=== PATIENT | female | born 1950 | race Caucasian/White ===

== ENCOUNTER 2018-11-30 13:35 | Inpatient (IN) | payer OTHER ==
[~2018-11-30] VITALS: Ht 160 cm; Wt 103.3 kg
[2018-11-30 13:41] VITALS: BP 166/71
[2018-11-30] MEDS ORDERED: TYLENOL325 MG PO (14:03)
[2018-11-30] MEDS ORDERED: ADVAIR 250-501 EACH INH (14:03)
[2018-11-30] MEDS ORDERED: BENZONATATE200 MG PO (14:04)
[2018-11-30] MEDS ORDERED: BUSPIRONE HCL5 MG PO (14:05)
[2018-11-30] MEDS ORDERED: SINEMET 25-1001 EAC1 PO (14:06)
[2018-11-30] MEDS ORDERED: COREG6.25 MG PO (14:07)
[2018-11-30] MEDS ORDERED: VITAMIN D1000 UNI1 PO (14:07)
[2018-11-30] MEDS ORDERED: EMOLLIENT500 GM TOP (14:08)
[2018-11-30] MEDS ORDERED: FLUOXETINE HCL40 MG PO (14:09)
[2018-11-30] MEDS ORDERED: ADULT WAL-100 MG/5 M PO (14:09)
[2018-11-30] MEDS ORDERED: HUMALOG100 UNIT/1 SUBQ (14:10)
[2018-11-30] MEDS ORDERED: HYDROCODONE-AP1 EAC6 PO (14:11)
[2018-11-30] MEDS ORDERED: LANTUS100 UNIT/M SUBQ (14:13)
[2018-11-30 14:14] LABS: URINE BILIRUBIN NEGATIVE (Negative); URINE BLOOD 2+ (Negative); URINE CLARITY CLOUDY; URINE COLOR YELLOW; URINE GLUCOSE-RANDOM* NEGATIVE (Negative); URINE KETONES NEGATIVE (Negative); URINE NITRITE-REFLEX NEGATIVE (Negative); URINE PROTEIN (DIPSTICK) 2+ (Negative); URINE SPECIFIC GRAVITY 1.025 (1.005-1.035); URINE UROBILINOGEN 0.2 E.U./dl (0.2-1.0)
[2018-11-30] MEDS ORDERED: SYNTHROID75 MCG PO (14:14)
[2018-11-30] MEDS ORDERED: IPRAT-ALBUT 0.5-3 ML INH (14:14)
[2018-11-30] MEDS ORDERED: LIDODERM1 EACH TOP (14:15)
[2018-11-30] MEDS ORDERED: LIPITOR10 MG PO (14:17)
[2018-11-30] MEDS ORDERED: LISINOPRIL20 MG PO (14:17)
[2018-11-30] MEDS ORDERED: CLARITIN10 MG PO (14:17)
[2018-11-30 14:18] LABS: URINE LEUKOCYTES-REFLEX 3+ (Negative)
[2018-11-30] MEDS ORDERED: MELATONIN3 MG PO (14:18)
[2018-11-30] MEDS ORDERED: MAGOX 400400 MG PO (14:18)
[2018-11-30] MEDS ORDERED: RANITIDINE HCL75 MG PO (14:20)
[2018-11-30] MEDS ORDERED: NYAMYC15 GM TOP (14:20)
[2018-11-30] MEDS ORDERED: TRAZODONE HCL50 MG PO (14:21)
[2018-11-30] MEDS ORDERED: SENNA8.6 MG PO (14:21)
[2018-11-30] MEDS ORDERED: VOLTAREN GEL 1100 G2 TOP (14:22)
[2018-11-30] MEDS ORDERED: XANAX 0.5 MG0.5 MG PO (14:22)
[2018-11-30] MEDS ORDERED: XARELTO15 MG PO (14:23)
[2018-11-30 14:33] LABS: CASTS None Seen /LPF (None Seen); CRYSTALS None Seen /LPF (None Seen); SQUAMOUS 0-3 Few /LPF (0-3)
[2018-11-30 14:34] LABS: BACTERIA-REFLEX >30 Many /HPF (None Seen); URINE RBC 0-2 Rare /HPF (0-2); URINE WBC-REFLEX >25 Many /HPF (0-5)
[2018-11-30 14:46] LABS: HEMATOCRIT 37.7 % (37.0-47.0); HEMOGLOBIN 12.9 gm/dL (12.0-15.0); MCH 30.3 pg (26.0-34.0); MCHC 34.2 g/dL (28.0-37.0); MCV 88.6 fL (80.0-100.0); RBC 4.25 mil/uL (4.20-5.00); RDW 15.4 % (10.5-14.5); WBC 9.7 thou/uL (4.0-11.0)
[2018-11-30 14:51] LABS: CALCIUM 10.6 mg/dL (8.5-10.1); CREATININE 1.3 mg/dL (0.6-1.0); POTASSIUM 4.2 mmol/L (3.5-5.1)
--- NOTE | 2018-11-30 15:27 | NUR ---
KAREN AGUILERA (DAUGHTER) [phone]
[2018-11-30 16:27] VITALS: BP 147/76
--- NOTE | 2018-11-30 18:43 | NUR ---
PATIENT ARRIVED ON UNIT AT 1645 FROM [facility]. PATIENT ON 96 HOUR HOLD. DAUGHTER KAREN AGUILERA MAKES ALOT OF HER MEDICAL DECISIONS BUT NOT DPOA OR GUARDIAN. [phone]. PATIENT RESIDED AT [facility]. PATIENT HAS NO SHORT TERM MEMORY AND REPEATIOUSLY ASKS SAME QUESTIONS OVER AND OVER. PATIENT DISTRAUGHT AND DOES NOT WANT TO STAY AT FACILITY. PATIENT ATTEMPTED TO STRANGLE HERSELF WITH TELEPHONE CORD AT FACILITY AND HAS HAD SEVERAL SELF HARM ATTEMPTS IN THE PAST WELL. PATIENT STATES SHE DOES THIS TO GAIN ATTENTION SINCE HER DAUGHTER DOES NOT VISIT HER ON REGULAR BASIS OR RESPOND TO HER CONSTANT NEEDS. HAS VERY POOR INSIGHT OR JUDGEMENT AND SLOW TO UNDERSTAND WHAT IS CONVEYED TO HER. ALERT AND ORIENTED X 3 THOUGH. UNDERSTANDS WHY SHE IS HERE PATIENT DOCTOR MOUNIKA ZHONG - DENIED ANY FLU SHOT - STATES AMBULATES WITH WALKER AT FACILITY. PATIENT HAD FALL - NOV 26 AT FACILITY. NODULE AND BRUISING BELOW KNEE ON RIGHT TIBIA - CLAIMS VERY PAINFUL. ALSO CELLULITIS NOTED BILATERALLY IN BOTH LOWER EXTREMITIES. DIAGNOSED UTI AND STARTED ON ANTIBIOTIC. CONTINENT AND MAKES TOLLETING NEEDS KNOWN. NEEDS STAND BY ASSIST WITH AMBULATING. PATIENT DIABETIC - INSULIN DEPENDENT. PATIENT ALLERGIC TO COMPAZINE, KEFLEX, CEPHALOSPORINS AND PENICILLINS. MULTIPLE MEDICAL DIAGNOSES LISTED IN CHART - DOCUMENTATION. DR. HARVEY IS HER MEDICAL DOCTOR. PICTURES TAKEN OF LOWER EXTREMITIE AND BRUISE TO RIGHT TIBIA. ALSO HAS MIDDLE TOE AMBUTATED ON LEFT FOOT.
[2018-11-30 19:00] VITALS: BP 152/69
[2018-11-30 19:53] LABS: ALBUMIN 3.6 g/dL (3.4-5.0); DIRECT BILIRUBIN 0.1 mg/dL (<0.1-0.3); TOTAL BILIRUBIN 0.5 mg/dL (<0.1-1.0); TOTAL PROTEIN 7.1 g/dL (6.4-8.2)
--- NOTE | 2018-12-01 01:10 | NUR ---
THE PATIENT IS VERY ANXIOUS THIS PM. ALERT ET ORIENTED X 2, NAME AND PLACE. WALKS WITH A WALKER AND SOMETIMES USEDS A WHEELCHAIR. MAKES NEEDS KNOWN. WANTED SOMETHING TO HELP HER SLEEP EARLIER IN THE EVENING, MEDICATED PER PT'S REQUEST.
--- NOTE | 2018-12-01 05:42 | NUR ---
THE PATIENT WOKE UP C/O ABOUT HER BACK HURTING, GAVE THE PATIENT TWO PLAIN TYLENOL ORDERED. CALLED THE N.P. WHO WAS DATA TECHNICIAN AND SHE ORDERED FOR HER TO GET A LIDOCAINE PATCH FOR HER BACK. WHILE TELLING THE PATIENT REGARDING HER PAIN MEDICATION, SHE WAS CRYING AND YELLING, "NURSE, NURSE."
[2018-12-01 07:15] VITALS: BP 149/71
--- NOTE | 2018-12-01 08:20 | NUR ---
CLIENT UP SET THIS AM AND WANTING TO GO HOME, HER SON BIRTHDAY TODAY. SHE STATED THAT SHE WANTS TO SAY HAPPY BIRTHDAY TO HIM. CLIENT STATED SHE WASN'T HUNGRAY. CLIENT HAS LARGE BRUISE TO RT LOWER LEG ABOVE KNEE FROM FALL. UP WITH WALKER, HAS BRIEFS ON THAT IS SATURATED WITH URINE.
--- NOTE | 2018-12-01 10:49 | NUR ---
PT YELLING INCESSANTLY; STATES SHE WANTS TO GO HOME, MISSES HER DAUGHTER, USED TO HAVE A DOG, STATES SON IS HAVING A BDAY TODAY, CRYING. DR AND RN WORKING ON HER MEDICATIONS, WILL CALM DOWN LONG ENOUGH TO ANSWER QUESTIONS THEN IMMEDIATELY START CRYING SAYING SHE WANTS TO GO HOME. DECLINES GOING OUT TO DAY ROOM, GAVE HER SILVA TO HER FOR CALLING OUT.
--- NOTE | 2018-12-01 12:32 | NUR ---
ADM ZYPREXA 2.5MG PO FOR ANXIETY AND CRYING WANTING TO GO HOME AND TALK TO HER DAUGHTER. SHE IS UPSET.
--- NOTE | 2018-12-01 13:03 | H ---
[facility] [place] [address] HISTORY AND PHYSICAL Name: SAMUEL STEVEN Room #: 518A-A ADM IN M.R.#: [id number] Admission: 11/30/18 ������������������ Attend Phys: Anthony Abbasi DO Discharge: ������������������ Date of : 50 Report #: [id number] THIS REPORT FOR: //name// CC: Anthony Chiu DATE OF SERVICE: 11/30/2018 INPATIENT PSYCHIATRIC EVALUATION SOURCE OF INFORMATION: Interview with the patient in the Emergency Room and also briefly on the [facility] telephone call with her daughter, Donna; chart review from the Emergency Room; limited notes from the [facility], where the patient resides. PRIMARY CARE PHYSICIAN: Unknown. PSYCHIATRIST: Her psychiatrist at the nursing facility is Dr. Nicole Pascal. HISTORY OF PRESENT ILLNESS: A 68-year-old obese female brought to the Emergency Room from the [facility]. She has been a resident there for about 2 years. She was sent after staff noticed her expressing suicidal thoughts, this was x 2; restricted affect, fatigue and decreased appetite. Apparently, in addition to her threats today, she was found with the telephone cord wrapped around her neck. She reports family strain and does not feel as though her family members, specifically her daughter, is attending to her needs. Collaterals later gotten from her daughter, Donna, which is much more believable, the patient is calling a large number of times a day and not remembering her previous phone calls and making some unreasonable demands of the daughter's time. This has been going on in its current intensity for several weeks. The patient later reported that she did this to get her daughter to visit and pay attention to her. REVIEW OF SYSTEMS: From the ER: CONSTITUTIONAL: Denies fever or chills. EYES: Denies eye pain, visual change or discharge. HEENT: Denies hearing changes, ear drainage, ear infections, ear pain, neck pain or stiffness. RESPIRATORY: Denies cough, shortness of breath, hemoptysis or respiratory distress. CARDIOVASCULAR: Denies chest pain, chest pain with exertion or edema. GASTROINTESTINAL: Denies abdominal pain, nausea, vomiting or diarrhea. GENITOURINARY: Denies burning, frequency or dysuria. MUSCULOSKELETAL: Denies back pain, joint pain, muscle weakness or myalgias. SKIN: Denies rash. [facility] [address] [place] [address] HISTORY AND PHYSICAL Name: SAMUEL STEVEN Room #: 518A-A ADM IN ..#: [id number] Admission: 11/30/18 ������������������ Attend Phys: Anthony Abbasi DO Discharge: ������������������ Date of : 50 Report #: [id number] NEUROLOGIC: Denies weakness, headache or loss of consciousness. PSYCHIATRIC: SI with suicidal gesture. Denies HI or hallucinations. Otherwise, negative on 10-point review of systems. ALLERGIES: CEPHALEXIN, SEVERE; COMPAZINE, WHICH IS PROCHLORPERAZINE, INTERMEDIATE CONFUSION; CEPHALOSPORINS, SWELLING; PENICILLINS, NO REACTION GIVEN. MEDICATIONS: Her reported medications from the prison are as follows: Tylenol 650 mg every 4 hours p.r.n. for pain on the floor, Advair Diskus 250/50 one puff inhaled b.i.d., benzonatate 200 mg p.o. 3 times a day as needed for cough, buspirone 5 mg oral twice a day for anxiety, carbidopa/levodopa 25/100 mg one-half tab p.o. twice per day, Coreg 6.25 mg oral twice a day, cholecalciferol 1000 international units oral daily, Moisturizing cream applied topically twice a day to the legs, fluoxetine 40 mg oral daily, guaifenesin 200 mg oral every 4 hours p.r.n. for cough, insulin lispro 7 units subq before meals, hydrocodone/acetaminophen 5/325 one tab oral every 4 hours p.r.n. for pain 5-10, Lantus 25 units subq at bedtime, ipratropium bromide with albuterol 3 mL inhaled q.4h. p.r.n. for severe wheezing, levothyroxine 75 mcg oral daily for hypothyroidism, atorvastatin 10 mg oral daily for hyperlipidemia, lisinopril 10 mg p.o. daily for hypertension, loratadine 10 mg p.o. daily p.r.n. for allergies, melatonin 3 mg oral at bedtime for sleep, nystatin powder apply topically daily medication specified, ranitidine 75 mg oral daily for GERD, senna 7.2 mg oral as needed p.r.n. constipation, trazodone 50 mg oral at bedtime for insomnia, Diclofenac gel twice a day. SOCIAL HISTORY: Denied tobacco use, denied alcohol use, denied any recreational drug use. Born and raised in [place], [place]; originally high school education. She actually went to college when her kids did not get a social work degree. 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. The patient retired from work about 15 years ago. Regarding the last several years, 3 years ago, she was found down several times with TIA. She spent one week in a coma and 3 months in rehabilitation, returned to live with daughter for 8 months. Daughter had an issue of finding her down inexplicitly multiple times. At that point, she was moved to the long-term care facility. Daughter describes her as having high anxiety, relying on Xanax, needing and wanting to be weaned; recently started on BuSpar. She states her brother, the son of the patient, came last weekend to assist. She has been calling her 8-15 times a day over the last 2 weeks. The daughter also endorses recent admission at [facility] for several weeks around [place] time; it is unclear if it is psych or medical. Additional episode of psychiatric history, diagnosis of vascular dementia made one month ago. Unclear if she has had any neuropsych testing. Her primary care physician is Dr. Lauren Chiu. [facility] [address] [place] [address] HISTORY AND PHYSICAL Name: SAMUEL STEVEN Room #: 518A-A ADM IN [facility].#: [id number] Admission: 11/30/18 ������������������ Attend Phys: Anthony Abbasi DO Discharge: ������������������ Date of : 50 Report #: [id number] LABORATORY DATA: Laboratories in the Emergency Room, white count 9.7, H and H 8.9 and 37.7 and platelet count 253,000. BUN 26, creatinine 1.3, glucose 140 and calcium 10.6, which is slightly high. AST is low at 13, ALT low at 21 and alkaline phosphatase 136. Vitamin B12 level is 772. Albumin is 3.6. Urinalysis had 2+ protein, 2+ blood, 3+ leukocyte esterase, greater than 25 wbc's and greater than 30 bacteria per high-power field. MICROBIOLOGY: The patient has urine and 2 blood cultures pending. VITAL SIGNS: On admission, BP 147/76, heart rate 69, respirations 16 and O2 sat 97%. I do not see a temperature taken, but I believe her to be afebrile. IMAGING: No imaging was done today. No brain scans available. The patient is mostly still ambulatory, but weak. She does have bruising on the right knee and bilateral ankle erythema, most likely stasis in nature; however, cellulitis cannot be excluded. CURRENT MEDICATIONS IN THE HOSPITAL: Include Xarelto, MiraLax, vitamin D, atorvastatin, Coreg, Protonix 20 mg daily, levothyroxine and insulin 7 units with meals. She is on Pulmicort and albuterol inhaler, the Pulmicort is twice a day and albuterol every 6 hours; alprazolam I reduced to 0.25 mg 3 times a day. She is on Bactrim one tab p.o. b.i.d. for another 7 days for UTI and treatment of any cellulitic process, magnesium oxide 400 mg at bedtime and Lantus 25 units. I did increase the dose of her carbidopa/levodopa to one tab p.o. b.i.d. as she had prominent tremulousness of her upper extremities in the 25/100 mg ER, and trazodone 50 mg at bedtime. I have ordered Accu-Cheks a.c. and at bedtime. MENTAL STATUS EXAMINATION: A well-developed, obese, disheveled female appearing her stated age. Attention limited, concentration limited. Speech is on the hyperverbal side, perseverative. No psychomotor agitation. No psychomotor retardation. Denied auditory, visual or tactile hallucinations. Endorsed suicidal intent prior to ER presentation and denying currently. Some helplessness. Denies hopelessness. Denies homicidal intent or plan. Memory not formally tested, though on observation in the ER, I believe her to be grossly impaired. Insight limited. Judgment limited. Fund of knowledge below average. FORMULATION: A 68-year-old obese female brought to the Emergency Room, placed in a 96-hour hold for suicidal statements and suicidal gesture. 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 [facility] [address] HISTORY AND PHYSICAL Name: SAMUEL STEVEN Room #: 518A-A ADM IN M.R.#: [id number] Admission: 11/30/18 ������������������ Attend Phys: Anthony Abbasi DO Discharge: ������������������ Date of : 50 Report #: [id number] PLAN: Evaluate, stabilize and obtain collateral. Medications as already documented. We will attempt to, over the next several days, evalauatethe patient's difficulties and see how we can ameliorate them. I spoke over the phone with her daughter, Donna, as there is likely memory care placement also, given the fact she has no DPOA. We will have to see if that level of care can be provided without proceeding with any appropriate court hearings. ELOS 7-14 days STRENGTH: Relatively young age, supportive family. WEAKNESSES: Chronic course. ��������������������������������������������� <ELECTRONICALLY SIGNED> ���������������������������������������� By: Anthony Abbasi DO ��������������������������������������������� 12/01/18 [id number] Anthony Abbasi DO /nt
--- NOTE | 2018-12-01 15:00 | NUR ---
CLIENT IS RESTING HEAD ON TABLE IN DINNING ROOM. NOT ANXIOUS THIS AM. NOTICE COUGHING AFTER DRINKING LIQUIDS. CLIENT STATED IT IS FROM ALLERGIES. HAD GROUP WITH AUTO WHEEL ALIGNMENT SPECIALIST AND SEEMS CALMER SINCE MEETING.
--- NOTE | 2018-12-01 18:25 | NUR ---
CLIENT CALMER NOW, ABLE TO EAT DINNER. STATED CAN I CALL MY SON TO WISH HIM A HAPPY BDAY. THIS NURSE CALLED DAUGHTER AND GOT NUMBER FOR SON.
[2018-12-01 20:25] VITALS: BP 137/65
--- NOTE | 2018-12-01 23:07 | NUR ---
ASSUMED PT CARE 1899. PT ALERT. REASSESSMENT COMPLETE. PT BED ALARM SET. PT ANXIOUS, SPOKE WITH SON ON PHONE AND CALMED DOWN SOME AFTER. PT IN BED SLEEPING AT THIS TIME. WILL CONTINUE TO MONITOR.
--- NOTE | 2018-12-02 07:30 | NUR ---
CLIENT SLEEPING AND DIDN'T WANT TO EAT BREAKFAST.
[2018-12-02 07:42] VITALS: BP 142/66
[2018-12-02 08:00] VITALS: BP 142/66
--- NOTE | 2018-12-02 10:00 | NUR ---
CLIENT UP AND OUT TO DINNING ROOM VIA WALKER. SHE IS UPSET AND WANTING TO SEE HER DAUGHTER, NOTICED TREMORS TO ARMS. CLIENT HAD YOGART, JUICE AND CRACKERS, ALSO TOOK AM MEDS.
--- NOTE | 2018-12-02 10:46 | NUR ---
CLIENT CRYING AND STATED HER DAUGHTER WAS SUPPOSED TO BE HERE AT 1000. CLIENT WANTING NURSE TO CALL DAUGHTER. REFUSING SHOWER AT THIS TIME DUE TO WANTING PRIVACY.
--- NOTE | 2018-12-02 11:00 | NUR ---
DAUGHTER HERE AND TALKING WITH AND CLIENT.
--- NOTE | 2018-12-02 14:29 | NUR ---
ADM HYDROCODONE 5MG PO FOR PAIN TO BACK OF 10 ON 1-10 SCALE.
--- NOTE | 2018-12-02 16:20 | NUR ---
CLIENT STATED THAT NORCO DIDN'T HELP AT THIS TIME. CLIENT TOOK OFF LIDOCAINE PATCH, CALLING HOSPITALIST FOR INCREASE IN MED.
--- NOTE | 2018-12-02 17:38 | NUR ---
CLIENT ON PHONE WITH DAUGHTER. CLIENT REFUSING TO GET A BATH DUE TO HER WEIGHT, SELF-CONSCIOUS ABOUT HER LOOKS. SHE AGREED TO GETTING A BATH WHEN TALKING TO DAUGHTER.
--- NOTE | 2018-12-02 18:57 | NUR ---
CLIENT HAD TUB SHOWER, TOLERATED WELL. PUT ON CLEAN BRIEF AND CLOTHES. ADM HYDRYCODONE 5MG PO FOR PAIN TO BACK OF 10 ON 1-10 SCALE.
[2018-12-02 20:12] VITALS: BP 106/61
[2018-12-02 22:15] VITALS: BP 106/61
--- NOTE | 2018-12-03 03:02 | NUR ---
PT RELAXING IN BED AT [facility]. TEARFUL AND FRIGHTENED. WANTING TO CALL DAUGHTER. CALL PROVIDED. GOOD CONVERSATION WITH DAUGHTER, WHO REASSURED HER THINGS WERE GOING TO GET BETTER. TOOK MEDS PRESCRIBED. SLEPT WELL THROUGH THE NIGHT. DURING EVENING ASSESSMENT, NOTICED TREMORS. BS 145 GLARGINE 25u SQ TO L TRICEP, PER PT REQUEST.
[2018-12-03 07:47] VITALS: BP 127/62
--- NOTE | 2018-12-03 09:31 | NUR ---
ASSUMED CARE OF PT AT 0700. ADMINISTERED AM MEDS ORDERED. HX HTN, BP MEDS GIVEN ORDERED. ASSESSMENT COMPLETED. DROWSY, PT STATES WANTING TO SLEEP MORE. REFUSED TO GET UP AND EAT BREAKFAST. C/O LOWER BACK PAIN, LIDOCAINE PATCH IN PLACE. PT STATES IT DOES NOT RELIEVE BACK PAIN. CLEAR LUNG SOUNDS, BREATHING TX ORDERED. REGULAR HEART SOUNDS. ACTIVE BOWEL SOUNDS, LBM 2/15. SKIN INTACT, BRUISING AND BILATERALL LOWER EXTREMITY CELLULITIS. PT GETS UP WITH WALKER AND X1 ASSIST. WILL CONTINE TO MONITOR.
--- NOTE | 2018-12-03 09:50 | NUR ---
ASSUMED PATIENT CARE AT 0730 A.M. PATIENT IN ROOM AT THAT TIME, ASSISTED UP TO BEDSIDE COMMODE BY STONEWORK TRACER. NURSE ASSESSED PATIENT AT 0930; AUSSCULTATED IRREGULAR HEART RATE THAT SOUNDED POSSIBLY A-FIB RHYTHM. DR. BERRY ORDERED EKG AT THAT TIME, COMPLETED AT 0945. EKG SHOWS A-FIB; DR. BERRY NOTIFIED, STATED THAT HE WILL TAKE A LOOK AT HER WHEN RESPONDING TO THE UNIT. PATIENT IS LYING IN BED, SUPINE POSITION WITH EYES CLOSED AT THIS TIME. CONTINUE TO MONITOR.
--- NOTE | 2018-12-03 09:56 | NUR ---
ASSUMED PATIENT CARE AT 0730. PATIENT LYING IN BED, LEFT SIDE POSITION. REFUSED TO GET UP FOR BREAKFAST OR TO TAKE HIS 0900 MEDICATIONS. AT 0930, PATIENT WOULD NOT GET UP, CONTINUED TO KEEP HIS EYES CLOSED AND NOT SPEAK TO NURSE. WILL CONTINUE TO MONITORL.
--- NOTE | 2018-12-03 12:41 | NUR ---
DAUGHTER VISITED. PT ATE 100% OF LUNCH. NO INSULIN NEEDED PER SLIDING SCALE. PT IN STABLE CONDITION. END OF SHIFT.
--- NOTE | 2018-12-03 16:34 | NUR ---
NEW ORDER FOR LACTULOSE 30ML FOR CONSTIPATION. ALSO, ORDER FOR KUB. LACTULOSE 30 ML GIVEN. PHARMACY DELIVERED LACTULOSE IMMEDIATELY AFTER ACKNOWLEDGED. NOTE: PATIENT WAS ON THE PORTABLE PHONE, TEARFUL WHILE SPEAKING WITH A FAMILY MEMBER. NURSE ENCOURAGED PATIENT THAT LACTULOSE WILL SOFTEN HER BOWELS IN ORDER TO HAVE A BOWEL MOVEMENT. PATIENT THEN CEASED HER CRYING. CONTINUE TO MONITOR.
--- NOTE | 2018-12-03 18:29 | NUR ---
PATIENT'S DRESSING CHANGED AT 1820 P.M. ON RIGHT FOREARM. STERI-STRIPS RE-ENFORCED, DRESSING APPLIED PREVIOUS, WRAPPED WITH KERLEX. PATIENT TOLERATED WELL.
[2018-12-03 19:19] VITALS: BP 118/60
[2018-12-04 00:07] VITALS: BP 118/60
--- NOTE | 2018-12-04 03:04 | NUR ---
PT OUT EARLY IN EVENING WATCHING TV AND INTERACTING WITH STAFF. RELAXED BUT AFFECT FLAT, BUT WILL SPONTANEOUSLY SMILE WHEN APPROACHED. DENIES SI AT THIS TIME. ASSESSMENT DEMONSTRATES CLEAR LUNGS BUT A SLIGHT DRY COUGH. HEART RATE STEADY AND REG. TOOK HS MEDS ORDERED. BS 145. GLARGINE 25u SQ TO UPPER ABD. ASSISTED TO BED AT 2245. SLEPT WELL.
[2018-12-04 07:00] VITALS: BP 135/52
[2018-12-04 07:30] VITALS: BP 135/52
--- NOTE | 2018-12-04 08:09 | NUR ---
CLIENT DIDN'T WANT TO GET UP TO DINNING ROOM AT THIS TIME FOR BREAKFAST. RESTING IN BED WITH EYES CLOSED.
--- NOTE | 2018-12-04 09:30 | NUR ---
CLIENT UP TO BATHROOM VIA WALKER X1 ASSIST. NEEDS HELP WITH STANDING THEN OK TO AMBULATE. CLIENT STATED THAT HER PAIN TO BACK IS 9 ON 1-10 SCALE. LUNGS CLEAR. HAS BRIEF FOR STRESS INCONT. ON. UNABLE TO STAND FOR A LONG PERIOD OF TIME.
--- NOTE | 2018-12-04 09:50 | NUR ---
ADM HYDROCODONE 5MG ONE TAB FOR PAIN TO BACK OF 9 1-10 SCALE.
--- NOTE | 2018-12-04 13:11 | NUR ---
Assess due to high BMI 40.4 however 2 different wts are noted 175 lb vs 227 lb. Eating 100% of carb controlled diet and BG with fair to good control 79-187. Requires meal time and HS insulin. Has been constipated and has started on lactulose. Recommend a reweigh. Otherwise low nutrition risk
--- NOTE | 2018-12-04 13:42 | NUR ---
CLIENT RECIEVED HYDROCODONE 5MG PO FOR PAIN TO BACK OF 9 ON 1-10 SCALE.
--- NOTE | 2018-12-04 15:00 | NUR ---
CLIENT STATED PAIN MEDICATION DIDN'T HELP. CLIENT OUT IN DINNING ROOM SITTING ON SOFA WITH PILLOW BEHIND BACK. THIS NURSE STATED SHE COULD LAY DOWN IN HER BED, CLIENT STATED SHE WAS SCARED TO GO BACK TO HER ROOM. ASKED WHY, DIDN'T GET ANSWER.
--- NOTE | 2018-12-04 16:40 | NUR ---
CLIENT DAUGHTER CAME TO VISIT, SO HAPPY THAT HER MOM IS HER MOM. STATED SHE HASN'T BEEN FOR 6 MONTHS. CLIENT STILL WOULD LIKE TO GO HOME AND TEARFUL AT TIMES. NO OTHER COMPLAINTS, OTHER THAN CHRONIC BACK PAIN.
--- NOTE | 2018-12-04 18:31 | NUR ---
ADM NORCO 5MG 2 TABS PO FOR PAIN TO BACK OF 6 ON 1-10 SCALE. CLIENT STATED BACK PAIN IS BETTER. CLIENT WAS ABLE TO LAY DOWN THIS AFTERNOON.
[2018-12-04 19:31] VITALS: BP 122/47
--- NOTE | 2018-12-05 01:25 | NUR ---
ASSUMED CARE @1915, SITTING ON THE COUCH IN DAYROOM WATCHING TELEVISION. FLAT AFFECT AA&O X3 SOME CONFUSION ABOUT WHAT HOSPITAL NAME IS, AWARE OF BEING IN PSYCHIATRIC UNIT. DENIES SI, HRRR, LUNG SOUNDS CTA ALL PLATA. ABD SOUNDS NORMOACTIVE, PULSES TO ALL EXTREMITIES EQUAL AND STRONG. 2100 MEDS TAKEN WITHOUT DIFFICULTY, WITH APPLESAUCE. ASSISTED X1 TO TOILET. NO BM NOTED. PRN HYDROCODONE 5MG X2 TABS TAKEN FOR BACK PAIN OF 04/25. FSBS 230, INSULIN GLARGINE 25U PROVIDED SQ. ASSISTED TO CALL DAUGHTER TO TALK, SEEMED PLEASED WITH CONVERSATION. RETIRED TO BED @ 22:30 X1 ASSIST TO GO FROM SITTING ON BED TO LYING DOWN. SHARED WORK EXPERIENCE PRIOR TO RETIRING, SEEMED PLEASED TO RECOLLECT EDUCATION AN ADULT AND WORK.
[2018-12-05 07:10] VITALS: BP 171/69
[2018-12-05 07:30] VITALS: BP 171/69
--- NOTE | 2018-12-05 07:30 | NUR ---
DIDN'T WANT TO GET UP TO EAT BREAKFAST THIS AM. AWAKEN WITH VERBAL CUES.
--- NOTE | 2018-12-05 07:35 | NUR ---
HYDROCODONE 5/325 X2 TABS GIVEN FOR 7/10 BACK PAIN. @06:30. FOLLOW UP @ 0700 ASLEEP. REPORT GIVEN TO ONCOMMING NURSE.
--- NOTE | 2018-12-05 09:30 | NUR ---
CLIENT UP AND INCON. IN BED, DIDN'T HAVE BRIEF ON. TAKEN TO BATHROOM TO VOID. CLIENT STATED SHE HAD A LARGE BM LAST NIGHT, WITH DIARRHEA. REFUSING MEDS FOR BOWELS AT THIS TIME. UP WITH WALKER. CAN AMBULATE SHORT DISTANCES.
[2018-12-05] MEDS ORDERED: LORATIDINE 10 M10 M1 PO (10:39)
[2018-12-05] MEDS ORDERED: MACROBID 100 M100 M1 PO (10:40)
[2018-12-05] MEDS ORDERED: ATORVASTATIN CA10 MG PO (10:41)
[2018-12-05] MEDS ORDERED: XARELTO20 MG PO (10:41)
[2018-12-05] MEDS ORDERED: COREG6.25 MG PO (10:42)
--- NOTE | 2018-12-05 10:42 | NUR ---
ADM HYDROCODONE 5MG 2 TABS PO FOR PAIN TO LOWER BACK OF 6 ON 1-10 SCALE. OUT IN DINNING ROOM EATING YOGART, JELLO, ORANGE JUICE, AND MILK.
[2018-12-05] MEDS ORDERED: HYDROCODON-ACE1 EAC7 PO (10:44)
[2018-12-05] MEDS ORDERED: ACETAMINOPHEN325 M1 PO (10:45)
[2018-12-05] MEDS ORDERED: ZYPREXA 5 MG TAB5 M1 PO ×2 (10:48→10:49)
[2018-12-05] MEDS ORDERED: TRAZODONE HCL50 MG PO (10:48)
[2018-12-05] MEDS ORDERED: CARBIDOPA-LEVO1 EAC9 PO (10:50)
[2018-12-05] MEDS ORDERED: COLACE 100 MG100 MG PO (10:51)
[2018-12-05] MEDS ORDERED: PANTOPRAZOLE SO40 M1 PO (10:58)
[2018-12-05] MEDS ORDERED: VITAMIN D5000 UNIT PO (11:00)
[2018-12-05 11:38] VITALS: BP 171/69
--- NOTE | 2018-12-05 13:40 | NUR ---
CLIENT PARTICIPATED IN SOCIAL WORK GROUP. [facility]
--- NOTE | 2018-12-05 14:31 | NUR ---
PARTICIPATING IN AFTERNOON GROUP.
--- NOTE | 2018-12-05 16:10 | NUR ---
FAXED INFORMATION TO FACILITY VIA [facility] OR [facility].
--- NOTE | 2018-12-05 17:15 | NUR ---
CLIENT LEFT VIA W/C TO FACILITY.
--- NOTE | 2018-12-07 15:59 | D ---
[facility] [place] [address] DISCHARGE SUMMARY Name: SAMUEL STEVEN Room #: 518B-B [facility] IN M.R.#: [id number] Admission: 11/30/18 ������������������ Attend Phys: Anthony Abbasi DO Discharge: 12/05/18 ������������������ Date of : 50 Report #: [id number] THIS REPORT FOR: //name// CC: [facility] Abbasi [facility] DATE OF SERVICE: 12/05/2018 ATTENDING PHYSICIAN: Anthony Abbasi DO. HOSPITALIST AT THE TIME OF DISCHARGE: Abhijit Heck M.D. 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 COMORBIDITIES: Diabetes mellitus; hypertension; constipation, improved; chronic back pain, ongoing, controlled with hydrocodone and hyperlipidemia. DISCHARGE PLAN: Discharging to the [facility]. The patient will require 24 assistance and supervision. Psychiatric and general medical care to be provided at that facility. Dr. Pascal is the patient's psychiatrist at that facility. DISCHARGE MEDICATIONS: Are as follows: Loratadine 10 mg oral daily for antihistamine; nitrofurantoin 100 mg p.o. b.i.d. x 5 days for urinary tract infection; Xarelto 20 mg p.o. at dinner daily; atorvastatin 10 mg oral daily for hyperlipidemia; Coreg 6.25 mg p.o. b.i.d. for hypertension; hydrocodone 5/325 two tabs p.o. q. 4 hours p.r.n. for pain, 5-10; acetaminophen 650 mg p.o. q. 6 hours p.r.n. for pain, 1-4; trazodone 50 mg oral at bedtime p.r.n. for sleep; olanzapine 5 mg p.o. at bedtime for mood stabilization, 2.5 mg p.o. daily in the morning; carbidopa/levodopa 25/100 one tab p.o. b.i.d. for tremor treatment, the patient is managed by Dr. Bowles; docusate 100 mg p.o. b.i.d. for motility; Protonix 40 p.o. daily for GERD and cholecalciferol or vitamin D3 5000 international units p.o. daily supplementation. REASON FOR ADMISSION: Suicidal ideation and suicidal gesture including wrapping telephone cord around her neck, found by nursing facility. HOSPITAL COURSE: The patient was admitted to Geriatric Psychiatry Unit. Initially, she was focused on going home. She was not positional to performing in activities. Given a couple of days, she seemed around understanding the process for discharge from a psychiatric facility and became compliant with going along activities and showed some improved coping skills. She was given exercises by physical therapy to work on as alternatives for her chronic pain and muscle spasm. On the day of discharge, the patient was in stable condition for discharge to nursing facility. [address] [address] DISCHARGE SUMMARY Name: SAMUEL STEVEN Room #: 518B-B [facility] IN M.R.#: [id number] Admission: 11/30/18 ������������������ Attend Phys: Anthony Abbasi DO Discharge: 12/05/18 ������������������ Date of : 50 Report #: [id number] VITAL SIGNS: On the day of discharge are as follows: Temperature 36.6, pulse 62, respirations 16, BP 131/69 and O2 sat 97%. LABORATORY DATA: This admission, H and H 12.9 and 37.7, white count 9.7 and platelets 253,000. glucose ranges 100-250 usually Urine was positive for numerous things. Urine micro showed an E. coli UTI, which was resistant to Bactrim and was sensitive to nitrofurantoin. So, her antibiotics were changed. Musculoskeletal, ambulates with walker. MENTAL STATUS EXAMINATION: Well-developed, well-nourished, obese female, appearing stated age. Attention intact, concentration intact. Speech normal rate, rhythm and tone. Thought process linear and goal oriented. Thought content focused on discharge. No psychomotor retardation. No psychomotor agitation. Denied auditory, visual or tactile hallucinations. Denied suicidal intent or plan. Denied hopelessness or helplessness. Denied homicidal intent or plan. Mood and affect congruent, euthymic and deranged. PROGNOSIS: Guarded given age, major neurocognitive disorder and comorbidities. Additional report, during the hospitalization, we did have meetings with her daughter, Donna. The patient informed her DPOA. DPOA enacted later on. The patient seems to function best in a very structured environment, where she is now unable to isolate herself. Certainly too, she has a history of overuse of opiates. So the duration of narcotics allowed for her back should be tapered within the next 2 months. ��������������������������������������������� <ELECTRONICALLY SIGNED> ���������������������������������������� By: Anthony Abbasi DO ��������������������������������������������� 12/07/18 1559 [id number] Anthony Abbasi DO /nt
== END 2018-12-05 17:15 | DRG 884 ==
LOC: ER 13:35 → EROBS 15:21 → SBH 16:46
PROVIDERS: Physician Assistant; ADMIT Psychiatry & Neurology Psychiatry
DX: F01.51 Vascular dementia, unspecified severity, with behavioral disturbance (principal); R45.851 Suicidal ideations; N39.0 Urinary tract infection, site not specified; F32.9 Major depressive disorder, single episode, unspecified; E11.9 Type 2 diabetes mellitus without complications; E78.5 Hyperlipidemia, unspecified; M54.9 Dorsalgia, unspecified; G89.29 Other chronic pain; K59.00 Constipation, unspecified; I10 Essential (primary) hypertension; E03.9 Hypothyroidism, unspecified; F41.9 Anxiety disorder, unspecified; J45.909 Unspecified asthma, uncomplicated; Z89.422 Acquired absence of other left toe(s); Z79.51 Long term (current) use of inhaled steroids; Z79.4 Long term (current) use of insulin; Z79.899 Other long term (current) drug therapy; Z88.0 Allergy status to penicillin; Z88.1 Allergy status to other antibiotic agents; Z88.8 Allergy status to other drugs, medicaments and biological substances
CPT/HCPCS: 10880